=== PATIENT | female | born 1955 | race Caucasian/White ===

== ENCOUNTER 2024-05-27 11:31 | Emergency (ER) | payer MEDICARE, SELFPAY ==
--- NOTE | ~2024-05-27 | XR_ITS ---
EXAMINATION: XR chest 2V DATE: 05/27/2024 12:07 INDICATION: Cough. TECHNIQUE: Frontal and lateral views of the chest were obtained. COMPARISON: None. FINDINGS: There are airspace opacities in left lung apex. No pleural effusion or pneumothorax. The he art size is normal. There are surgical clips overlying the chest and abdomen. IMPRESSION: 1. Airspace opacities in left lung apex, consistent with scarring versus pneumonia. Reviewed, dictated and finalized at location A. LEADER IMPRESSION: 1. Airspace opacities in left lung apex, consistent with scarring versus pneumo zoey.
[2024-05-27 11:43] VITALS: BP 134/85; PULSE 75; RESP 16; TEMP 36.7; O2SAT 98
--- NOTE | 2024-05-27 11:48 | ED.URI ---
HPI - URI/Sore Throat General Chief Complaint: Upper Respiratory Infection Stated Complaint: Cough Time Seen by Provider: 05/27/24 11:48 Source: patient Mode of arrival: ambulatory Limitations: no limitations History of Present Illness HPI Narrative: 68 y/o female with hx DM and bilateral breast cancer presented for c/o nasal congestion and cough with chest congestion. Onset 2 days. Denies sob, wheezing, n/v/d/f/c. States due to her compromised immune system she is at risk for pneumonia. Pt also does not have pcp and is requesting refill on home meds. Related Data Allergies Allergy/AdvReac Type Severity Reaction Status Date / Time adhesive Allergy Hives Verified 05/27/24 12:00 codeine Allergy Hives Verified 05/27/24 12:00 morphine Allergy Hives Verified 05/27/24 12:00 Review of Systems Review of Systems: CONSTITUTIONAL: Denies body aches, fever, chills, or sweats. EYES: Denies visual changes, redness, or discharge. ENT: reports rhinorrhea, congestion, Denies sore throat, or otalgia. CARDIOVASCULAR: Denies chest pain, palpitations, or edema. RESPIRATORY: Reports cough, denies sob, wheezing. GASTROINTESTINAL: Denies abdominal pain, nausea, vomiting, or diarrhea. NEUROLOGIC: Denies headache PSYCH: reports anxiety. All systems reviewed & are unremarkable except as noted in HPI and below PMFSH Past Medical History Medical History (Updated 05/27/24 @ 12:27 by Devorah Rosario, CJ) Bilateral breast cancer Diabetes type 2 Comments At time of signature, I have reviewed and agree with nursing past medical, surgical, social and family history unless otherwise noted. Please see nursing chart for further information. There is no relevant family history pertinent to the presenting complaint Exam Narrative: GENERAL: mildly ill-appearing, in no acute distress. EYES: EOMI. No redness or drainage. Conjunctivae normal. ENT: Mucous membranes pink and moist. No rhinorrhea. TMs normal bilaterally. Throat normal. Uvula midline. NECK: Normal AROM. Supple. CHEST: No respiratory distress. Lungs clear to all devries. Occasional moist nonprofit fundraiser cough. HEART: Regular rate and rhythm. No murmur appreciated. SKIN: Warm, dry, Capillary refill normal. Normal skin turgor. NEURO: Alert and oriented x3. Gait steady. PSYCH: Normal affect. Course Course Emergency Course: Patient is aware of diagnosis, understands and agrees to treatment plan. Anticipatory guidance given. Patient agrees to follow-up as directed and is aware of reasons to seek care at the emergency department. Portions of this record may have been created with voice recognition software Level of Care: Express Care Visit Vital Signs Vital signs: Vital Signs Temperature 98.1 F 05/27/24 11:43 Pulse Rate 75 05/27/24 11:43 Respiratory Rate 16 05/27/24 11:43 Blood Pressure 134/85 05/27/24 11:43 Pulse Oximetry 98 05/27/24 11:43 Temperature 98.1 F 05/27/24 11:43 Pulse Rate 75 05/27/24 11:43 Respiratory Rate 16 05/27/24 11:43 Blood Pressure 134/85 05/27/24 11:43 Pulse Oximetry 98 05/27/24 11:43 MDM - URI/Sore Throat MDM Narrative Medical decision making narrative: Discussed physical exam findings and CXR. Advised supportive measures and signs/symptoms to go to the ER. Advised pt to establish with pcp for medication refills. Pt states she does not have a house, car, or any money. She is staying with her sister. Pt is appropriate for outpt treatment and f/u. Differential Diagnosis Differential diagnosis: Likely upper respiratory infection, sinusitis, bronchitis and other (bronchitis) Imaging Data Radiologist's impression: Patient: Rufina De La Vega : 1955 MR#: [id number] Age: 68 Acct:[id number] Loc: [facility] ADM Date: 05/27/24Attending Dr: Ordering Physician: Devorah Rosario APRN Date of Service: 05/27/24 Procedure(s): XR chest 2V Accession Number(s): [id number] cc: Devorah Rosario APRN; SHANK CEMENT[employer] HAND PHYSICIAN~ EXAMINATION: XR chest 2V DATE: 05/27/2024 12:07 INDICATION: Cough. TECHNIQUE: Frontal and lateral views of the chest were obtained. COMPARISON: None. FINDINGS: There are airspace opacities in left lung apex. No pleural effusion or pneumothorax. The heart size is normal. There are surgical clips overlying the chest and abdomen. IMPRESSION: 1. Airspace opacities in left lung apex, consistent with scarring versus pneumonia. Discharge Plan Discharge Clinical Impression: Bronchitis Patient Disposition: Home, Self-Care Condition: Stable Instructions: Antibiotic Form, Acute Bronchitis (ED), Pneumonia (ED) Additional Instructions: Pneumonia is a lung infection that can cause a fever, cough, and trouble breathing. How it spreads: When someone with bacterial pneumonia coughs, sneezes, or talks, they release respiratory droplets into the air that can be inhaled by others.?You can also get pneumonia by touching a contaminated surface or object and then touching your mouth or nose. You're generally contagious for around 48 hours after starting antibiotics and your fever goes away.? To prevent the spread of pneumonia, you can:? ? Get vaccinated? ? Wash your hands often with soap and water for 20 seconds? ? Cover your mouth with a tissue when you cough or sneeze? ? Avoid people who are already sick with pneumonia? ? Stay home when you have pneumonia Take antibiotics as directed until complete. eat small frequent meals. Get lots of rest and drink fluids. Alternate Tylenol and ibuprofen for pain/fever Jasd-[id number] cough medication can cause drowsiness, take according to package directions If you have nasal congestion, you can take Zyrtec, Claritin along with Flonase spray Call your Primary Care Doctor and make a follow-up appointment in 3 days. Go to the ER for worsening symptoms or concerns Prescriptions: New prednisone 20 mg tablet 40 mg PO DAILY 3 Days Qty: 6 0RF azithromycin [Zithromax Z-Dion] 250 mg tablet See Rx Instructions .ROUTE .COMPLEX Qty: 6 0RF Rx Instructions: For 250 mg dose pack: take 500 mg today (day 1), then 250 mg for 4 days (days 2-5) Follow-up/Referrals: PHYSICIAN,SHANK CEMENTER HAND [Primary Care Provider] - Time of Disposition: 12:30
== END 2024-05-27 12:31 | disposition home or self-care (01) ==
PROVIDERS: Emergency Provider Nurse Practitioner Family
DX: J40 Bronchitis, not specified as acute or chronic (principal); E11.9 Type 2 diabetes mellitus without complications; Z85.3 Personal history of malignant neoplasm of breast
CPT/HCPCS: 71046; 99203; G0463